=== PATIENT | female | born 1965 | race American Indian/Alaskan Native ===

== ENCOUNTER 2018-08-20 11:43 | Inpatient (IN) | payer MEDICARE ==
--- NOTE | 2018-08-20 12:29 | Cat Scan Report ---
CT HEAD WITHOUT CONTRAST: HISTORY: Stroke symptoms. TECHNIQUE: Sequential CT images without contrast. FINDINGS: No comparison at this facility. There are numerous metallic clips in the middle cranial fossa suggesting multiple previous aneurysm repairs. Please correlate with history. These clips generate significant artifact. Having said that, the brain parenchyma attenuation appears within normal limits. No evidence for large area of ischemia, hemorrhage or mass. No large chronic infarct. Ventricular size is within normal limits. The sinuses and mastoid air cells are well-aerated. Previous bilateral craniotomy changes are noted. IMPRESSION: Limited examination secondary to numerous surgical clips in the middle cranial fossa. No acute intracranial process is appreciated. These findings were discussed with Dr. Hairston in the emergency department at 1225 hrs.
[2018-08-20 12:48] LABS: Eosinophils # (Auto) 0.1 K/mm3 (0.0-0.4); Eosinophils % (Auto) 2.8 % (0.0-4.3); Hematocrit 38.4 % (30.3-42.9); Hemoglobin 12.8 gm/dl (10.1-14.3); Lymphocytes # (Auto) 1.8 K/mm3 (1.2-5.4); Lymphocytes % (Auto) 36.4 % (13.4-35.0); Mean Corpuscular HGB Conc 33 % (30-34); Mean Corpuscular Volume 90 fl (79-97); Monocytes # (Auto) 0.3 K/mm3 (0.0-0.8); Monocytes % (Auto) 6.6 % (0.0-7.3); Platelet Count 227 K/mm3 (140-440); Red Blood Count 4.25 M/mm3 (3.65-5.03)
[2018-08-20 13:01] LABS: INR 0.95 (0.87-1.13); Partial Thromboplastin Time 20.2 Sec. (24.2-36.6)
[2018-08-20 13:02] LABS: Thrombin Time 14.7 Sec. (15.1-19.6)
[2018-08-20 13:05] LABS: Creatine Kinase MB 1.7 ng/mL (0.0-4.0)
[2018-08-20 13:07] LABS: Alanine Aminotransferase 14 units/L (7-56); Albumin 3.7 g/dL (3.9-5); BUN/Creatinine Ratio 13; Blood Urea Nitrogen 9 mg/dL (7-17); Calcium 8.4 mg/dL (8.4-10.2); Hemolysis Index 10
[2018-08-20] MEDS ORDERED: BABY ASPIRIN PO ONE (13:10)
--- NOTE | 2018-08-20 13:13 | Emergency Department Report ---
ED Neuro Deficit HPI - General Chief Complaint: Neuro Symptoms/Deficit Stated Complaint: STROKE Time Seen by Provider: 08/20/18 11:49 Source: patient, family Mode of arrival: Wheelchair Limitations: No Limitations - History of Present Illness Initial Comments: Numbness in lips region- points to top lip right and left- that was noted upon awakening but then has gotten worse/more pronounced throughout the morning; she did take some cold medicine for HBP patients -: Gradual, During the night, This morning Time: 11:54 Last Observed Normal: 22:30 Location: left face, dysarthria, left arm Presenting Symptoms: Present: Facial Droop/Numbness, Unable to Speak Clearly History of same: No (unknown per patient if this is what she had with her aneurysms back in 2007) Place: home Severity: mild Quality: numb, tingling Improves With: none Worsens With: none On Anticoagulants: No Treatments Prior to Arrival: none - Related Data Home Medications: Home Medications Medication Instructions Recorded Confirmed Last Taken Aspirin [Adult Low Dose Aspirin EC] 81 mg PO DAILY 11/14/17 08/20/18 11/14/17 Butalb/Acetaminophen/Caffeine 1 - 2 each PO Q4H PRN MDD 6 11/14/17 08/20/18 Unknown [Fioricet 50-300-40 mg CAP] capsules Ibuprofen [Motrin 800 MG tab] 800 mg PO TIDWM 11/14/17 08/20/18 11/14/17 Pravastatin [Pravachol] 80 mg PO DAILY 08/20/18 08/20/18 Unknown Telmisartan/Hydrochlorothiazid 1 each PO QDAY 08/20/18 08/20/18 08/17/18 [Telmisartan-Hctz 80-25 mg Tab] Previous Rx's Medication Instructions Recorded Last Taken Type Famotidine [Pepcid] 10 mg PO BID #30 tablet 11/16/17 Unknown Rx Allergies/Adverse Reactions: Allergies Allergy/AdvReac Type Severity Reaction Status Date / Time Penicillins Allergy Hives Verified 11/14/17 13:13 contrast dye Allergy Hives Uncoded 11/14/17 13:13 ED Review of Systems ROS: Stated complaint: STROKE Other details as noted in HPI ED Past Medical Hx - Past Medical History Previous Medical History?: Yes Hx Hypertension: Yes Hx CVA: Yes (RIGHT SIDE WEAKNESS) Additional medical history: BRAIN ANEURYSM X3, - Surgical History Additional Surgical History: X3, ANEURYSM CLIP X3 - Social History Smoking Status: Current Every Day Smoker Substance Use Type: None - Medications Home Medications: Home Medications Medication Instructions Recorded Confirmed Last Taken Type Aspirin [Adult Low Dose Aspirin EC] 81 mg PO DAILY 11/14/17 08/20/18 11/14/17 History Butalb/Acetaminophen/Caffeine 1 - 2 each PO Q4H PRN MDD 6 11/14/17 08/20/18 Unknown History [Fioricet 50-300-40 mg CAP] capsules Ibuprofen [Motrin 800 MG tab] 800 mg PO TIDWM 11/14/17 08/20/18 11/14/17 History Famotidine [Pepcid] 10 mg PO BID #30 tablet 11/16/17 08/20/18 Unknown Rx Pravastatin [Pravachol] 80 mg PO DAILY 08/20/18 08/20/18 Unknown History Telmisartan/Hydrochlorothiazid 1 each PO QDAY 08/20/18 08/20/18 08/17/18 History [Telmisartan-Hctz 80-25 mg Tab] ED Neuro Physical Exam - General Limitations: No Limitations Suspected Stroke: Yes (not a candidate for tPA due to PMH, LKN) - NIHSS Assessment Interval: Baseline 1a. Level of Consciousness: alert/keenly responsive 1b. LOC Questions: answers both correctly 1c. LOC Commands: performs tasks correctly 2. Best Gaze: normal 3. Visual: no visual loss 4. Facial Palsy: normal symmetrical movement 5b. Motor Arm Right: no drift 5a. Motor Arm Left: drift 6a. Motor Leg Left: drift 6b. Motor Leg Right: no drift 7. Limb Ataxia: absent 8. Sensory: mild/moderate sensory loss 9. Best Language: no aphasia 10. Dysarthria: mild/moderate dysarthria 11. Extinction/Inattention: no abnormality Total Score: 4 Stroke Severity: Minor Stroke ED Course Vital Signs 08/20/18 08/20/18 08/20/18 11:50 11:52 12:01 Temperature 97.5 F L Pulse Rate 76 79 79 Respiratory 16 15 16 Rate Blood Pressure 148/77 148/77 O2 Sat by Pulse Oximetry 08/20/18 08/20/18 12:22 12:31 Temperature Pulse Rate 78 77 Respiratory 17 13 Rate Blood Pressure 148/77 121/68 O2 Sat by Pulse 100 Oximetry - Lab Data Result diagrams: 08/20/18 12:42 Lab Results 08/20/18 08/20/18 08/20/18 Range/Units 11:56 12:42 12:42 WBC 4.9 (4.5-11.0) K/mm3 RBC 4.25 (3.65-5.03) M/mm3 Hgb 12.8 (10.1-14.3) gm/dl Hct 38.4 (30.3-42.9) % MCV 90 (79-97) fl MCH 30 (28-32) pg MCHC 33 (30-34) % RDW 16.0 H (13.2-15.2) % Plt Count 227 (140-440) K/mm3 Lymph % (Auto) 36.4 H (13.4-35.0) % [place] % (Auto) 6.6 (0.0-7.3) % Eos % (Auto) 2.8 (0.0-4.3) % Baso % (Auto) 1.0 (0.0-1.8) % Lymph # 1.8 (1.2-5.4) K/mm3 [place] # 0.3 (0.0-0.8) K/mm3 Eos # 0.1 (0.0-0.4) K/mm3 Baso # 0.0 (0.0-0.1) K/mm3 Seg Neutrophils % 53.2 (40.0-70.0) % Seg Neutrophils # 2.6 (1.8-7.7) K/mm3 PT 13.3 (12.2-14.9) Sec. INR 0.95 (0.87-1.13) APTT 20.2 L (24.2-36.6) Sec. Thrombin Time 14.7 L (15.1-19.6) Sec. POC Glucose 102 (70-105) - Medical Decision Making [facility] Impression: r/o stroke vs recrudescence of old stroke sx h/o at least 3 intracranial aneurysms s/p coiling and clipping, per patient may have more, has been 2+ years from follow up headache recent viral/sinus infection contrast allergy- has done okay with benadryl in past Recommendations: d/w ED doc would recommend MRI brain and MRA without contrast H/N to get an idea of aneurysm stability and +/- stroke; if negative for stroke would pursue toxic/metabolic/infectious w/u for recrudescence of old stroke symptoms, seizure also to be considered but no LOC; if positive, then needs further w/u on inpatient side Not a tpa candidate given LKN time as well as h/o intracranial aneurysms and potentially more that are not stabilized Does not appear to be an LVO will f/u on above Effie Olvera MD CC: stroke alert History of Present Illness: 53 yo female here with significant other - went to bed normal 2230 hrs - woke at 600 and had numbness above lip - went shopping, got cold medicine, took some, ate lunch, c/o worsening tingling over top lip and now into arm- reported to signif other that "this happens from time to time when aneurysms mess up"; but informed team at bedside that she is not sure, can't remember what symptoms she had with aneurysms Diagnostic Testing: CT head pending Vital Signs: 148 systolic BG pending Exam: NIHSS = 4 as noted below Mental Status: Awake, alert, oriented Naming: Intact Repetition: Intact Speech: fluent, + 1 slurred Cranial Nerves: Pupils: Equal round and reactive to light Extraocular movements: Intact in all cardinal gaze Ptosis: Absent Visual parker: Intact to finger counting Facial sensation: Intact to pin and light touch Facial movements:intact Motor Exam: left arm drift +1 Left leg drift + 1 Tremor/Abnormal Movements: Resting tremor: Absent Intention tremor: Absent Postural tremor: Absent Sensory Exam: reduced on left +1 Coordination: Finger to nose: Intact Heel to carrasco: Intact Medical Decision Making: - Extensive number of diagnosis or management options are considered above. - Extensive amount of complex data reviewed. - High risk of complication and/or morbidity or mortality are associated with differential diagnostic considerations above. - There may be uncertain outcome and increased probability of prolonged functional impairment or high probability of severe prolonged functional impairment associated with some of these differential diagnosis. Medical Data Reviewed: 1.Data reviewed include clinical labs, radiology, Medical Tests; 2.Tests results discussed w/performing or interpreting physician; 3.Obtaining/reviewing old medical records; 4.Obtaining case history from another source; 5.Independent review of image, tracing or specimen. Patient was informed the Neurology Consult would happen via telehealth (remote video) and consented to receiving care in this manner. Critical care attestation.: If time is entered above; I have spent that time in minutes in the direct care of this critically ill patient, excluding procedure time. ED Disposition Clinical Impression: Stroke (cerebrum) Disposition: DC-09 OP ADMIT IP TO THIS HOSP Is pt being admited?: Yes Condition: Stable Referrals: JAMIE DICKINSON MD [Primary Care Provider] - 3-5 Days
--- NOTE | 2018-08-20 13:23 | Emergency Department Report ---
ED General Adult HPI - General Chief complaint: Neuro Symptoms/Deficit Stated complaint: STROKE Time Seen by Provider: 08/20/18 11:49 Source: patient, family Mode of arrival: Wheelchair Limitations: No Limitations - History of Present Illness Initial comments: Patient presents to the most part with chief complaint of facial numbness and left-sided facial droop. The patient states she woke up this morning at approximately 6:30 AM with numbness on the left side of her mouth. The symptoms became progressively worse throughout the day. Patient denies chest pain, shows above, or headache. Patient does have a history of multiple aneurysms -: Sudden Severity scale (0 -10): 0 Consistency: constant Improves with: none Worsens with: none Associated Symptoms: denies other symptoms Treatments Prior to Arrival: none - Related Data Home Medications Medication Instructions Recorded Confirmed Last Taken Aspirin [Adult Low Dose Aspirin EC] 81 mg PO DAILY 11/14/17 08/20/18 11/14/17 Butalb/Acetaminophen/Caffeine 1 - 2 each PO Q4H PRN MDD 6 11/14/17 08/20/18 Unknown [Fioricet 50-300-40 mg CAP] capsules Ibuprofen [Motrin 800 MG tab] 800 mg PO TIDWM 11/14/17 08/20/18 11/14/17 Pravastatin [Pravachol] 80 mg PO DAILY 08/20/18 08/20/18 Unknown Telmisartan/Hydrochlorothiazid 1 each PO QDAY 08/20/18 08/20/18 08/17/18 [Telmisartan-Hctz 80-25 mg Tab] Albuterol Sulfate [Proair 90 mcg IH Q6HR PRN 08/21/18 08/21/18 08/20/18 Respiclick] Previous Rx's Medication Instructions Recorded Last Taken Type Famotidine [Pepcid] 10 mg PO BID #30 tablet 11/16/17 Unknown Rx Allergies Allergy/AdvReac Type Severity Reaction Status Date / Time Penicillins Allergy Hives Verified 11/14/17 13:13 contrast dye Allergy Hives Uncoded 11/14/17 13:13 corn AdvReac Headache Uncoded 08/21/18 15:46 Oats AdvReac Headache Uncoded 08/21/18 15:47 potato AdvReac Headache Uncoded 08/21/18 15:46 ED Review of Systems ROS: Stated complaint: STROKE Other details as noted in HPI Comment: All other systems reviewed and negative Constitutional: denies: chills, fever Eyes: denies: eye pain, eye discharge, vision change ENT: denies: ear pain, throat pain Respiratory: denies: cough, shortness of breath, wheezing Cardiovascular: denies: chest pain, palpitations Endocrine: no symptoms reported Gastrointestinal: denies: abdominal pain, nausea, diarrhea Genitourinary: denies: urgency, dysuria, discharge Musculoskeletal: denies: back pain, joint swelling, arthralgia Skin: denies: rash, lesions Neurological: weakness, numbness. denies: headache, paresthesias Psychiatric: denies: anxiety, depression Hematological/Lymphatic: denies: easy bleeding, easy bruising ED Past Medical Hx - Past Medical History Previous Medical History?: Yes Hx Hypertension: Yes Hx CVA: Yes (RIGHT SIDE WEAKNESS) Additional medical history: BRAIN ANEURYSM X3, - Surgical History Additional Surgical History: X3, ANEURYSM CLIP X3 - Social History Smoking Status: Current Every Day Smoker Substance Use Type: None - Medications Home Medications: Home Medications Medication Instructions Recorded Confirmed Last Taken Type Aspirin [Adult Low Dose Aspirin EC] 81 mg PO DAILY 11/14/17 08/20/18 11/14/17 History Butalb/Acetaminophen/Caffeine 1 - 2 each PO Q4H PRN MDD 6 11/14/17 08/20/18 Unknown History [Fioricet 50-300-40 mg CAP] capsules Ibuprofen [Motrin 800 MG tab] 800 mg PO TIDWM 11/14/17 08/20/18 11/14/17 History Famotidine [Pepcid] 10 mg PO BID #30 tablet 11/16/17 08/20/18 Unknown Rx Pravastatin [Pravachol] 80 mg PO DAILY 08/20/18 08/20/18 Unknown History Telmisartan/Hydrochlorothiazid 1 each PO QDAY 08/20/18 08/20/18 08/17/18 History [Telmisartan-Hctz 80-25 mg Tab] Albuterol Sulfate [Proair 90 mcg IH Q6HR PRN 08/21/18 08/21/18 08/20/18 History Respiclick] ED Physical Exam - General Limitations: No Limitations General appearance: alert - Head Head exam: Present: atraumatic, normocephalic - Eye Eye exam: Present: normal appearance, PERRL, EOMI - ENT ENT exam: Present: mucous membranes moist - Neck Neck exam: Present: normal inspection - Respiratory Respiratory exam: Present: normal lung sounds bilaterally. Absent: respiratory distress, wheezes, rales, rhonchi - Cardiovascular Cardiovascular Exam: Present: regular rate, normal rhythm. Absent: systolic murmur, diastolic murmur, rubs, gallop - GI/Abdominal GI/Abdominal exam: Present: soft, normal bowel sounds. Absent: distended, tenderness - Extremities Exam Extremities exam: Present: normal inspection - Back Exam Back exam: Present: normal inspection - Neurological Exam Neurological exam: Present: alert, oriented X3, CN II-XII intact, normal gait, other (patient has left-sided facial droop with 3/5 strength of the left upper extremity) - Psychiatric Psychiatric exam: Present: normal affect, normal mood - Skin Skin exam: Present: warm, dry, intact, normal color. Absent: rash ED Course Vital Signs 08/20/18 08/20/18 08/20/18 11:50 11:52 12:01 Temperature 97.5 F L Pulse Rate 76 79 79 Respiratory 16 15 16 Rate Blood Pressure 148/77 148/77 Blood Pressure [Right] O2 Sat by Pulse Oximetry 08/20/18 08/20/18 08/20/18 12:22 12:31 12:45 Temperature Pulse Rate 78 77 76 Respiratory 17 13 14 Rate Blood Pressure 148/77 121/68 121/68 Blood Pressure [Right] O2 Sat by Pulse 100 100 Oximetry 08/20/18 08/20/18 08/20/18 13:01 13:15 13:30 Temperature Pulse Rate 80 74 77 Respiratory 24 15 23 Rate Blood Pressure 148/77 148/77 148/77 Blood Pressure [Right] O2 Sat by Pulse 97 100 99 Oximetry 08/20/18 08/20/18 08/20/18 13:45 14:01 14:15 Temperature Pulse Rate 77 77 77 Respiratory 21 17 25 H Rate Blood Pressure 132/58 132/58 132/58 Blood Pressure [Right] O2 Sat by Pulse 99 100 100 Oximetry 08/20/18 08/20/18 08/20/18 14:31 14:45 15:00 Temperature Pulse Rate 78 79 80 Respiratory 19 17 15 Rate Blood Pressure 124/43 124/43 120/63 Blood Pressure [Right] O2 Sat by Pulse 100 100 100 Oximetry 08/20/18 08/20/18 08/20/18 15:15 15:31 15:45 Temperature Pulse Rate 79 77 79 Respiratory 16 23 27 H Rate Blood Pressure 120/63 123/77 123/77 Blood Pressure [Right] O2 Sat by Pulse 100 99 100 Oximetry 08/20/18 08/20/18 08/20/18 16:01 16:15 16:31 Temperature Pulse Rate 69 76 81 Respiratory 16 20 22 Rate Blood Pressure 123/77 123/77 145/62 Blood Pressure [Right] O2 Sat by Pulse 100 100 100 Oximetry 08/20/18 08/20/18 08/20/18 16:45 17:01 17:15 Temperature Pulse Rate 79 75 78 Respiratory 14 21 23 Rate Blood Pressure 145/62 122/57 122/57 Blood Pressure [Right] O2 Sat by Pulse 100 100 Oximetry 08/20/18 08/20/18 08/20/18 17:31 17:45 18:01 Temperature Pulse Rate 73 76 72 Respiratory 23 29 H 15 Rate Blood Pressure 122/57 122/57 123/61 Blood Pressure [Right] O2 Sat by Pulse 100 100 100 Oximetry 08/20/18 08/20/18 08/20/18 18:15 18:31 19:01 Temperature Pulse Rate 71 73 74 Respiratory 26 H 16 28 H Rate Blood Pressure 123/61 133/65 118/85 Blood Pressure [Right] O2 Sat by Pulse 100 100 99 Oximetry 08/20/18 08/20/18 08/20/18 19:31 20:01 20:31 Temperature Pulse Rate 72 71 74 Respiratory 29 H 26 H 23 Rate Blood Pressure 140/86 137/77 146/71 Blood Pressure [Right] O2 Sat by Pulse 99 100 100 Oximetry 08/20/18 08/20/18 08/20/18 20:51 21:00 21:31 Temperature 98.4 F Pulse Rate 71 75 77 Respiratory 17 25 H 22 Rate Blood Pressure 118/70 121/79 Blood Pressure 123/65 [Right] O2 Sat by Pulse 100 100 99 Oximetry 08/20/18 08/20/18 22:01 22:31 Temperature Pulse Rate 67 67 Respiratory 12 18 Rate Blood Pressure 142/79 117/38 Blood Pressure [Right] O2 Sat by Pulse 100 100 Oximetry ED Medical Decision Making - Lab Data Result diagrams: 08/21/18 05:07 08/21/18 05:07 Lab Results 08/20/18 08/20/18 08/20/18 Range/Units 11:56 12:35 12:42 WBC 4.9 (4.5-11.0) K/mm3 RBC 4.25 (3.65-5.03) M/mm3 Hgb 12.8 (10.1-14.3) gm/dl Hct 38.4 (30.3-42.9) % MCV 90 (79-97) fl MCH 30 (28-32) pg MCHC 33 (30-34) % RDW 16.0 H (13.2-15.2) % Plt Count 227 (140-440) K/mm3 Lymph % (Auto) 36.4 H (13.4-35.0) % [place] % (Auto) 6.6 (0.0-7.3) % Eos % (Auto) 2.8 (0.0-4.3) % Baso % (Auto) 1.0 (0.0-1.8) % Lymph # 1.8 (1.2-5.4) K/mm3 [place] # 0.3 (0.0-0.8) K/mm3 Eos # 0.1 (0.0-0.4) K/mm3 Baso # 0.0 (0.0-0.1) K/mm3 Seg Neutrophils % 53.2 (40.0-70.0) % Seg Neutrophils # 2.6 (1.8-7.7) K/mm3 PT (12.2-14.9) Sec. INR (0.87-1.13) APTT (24.2-36.6) Sec. Thrombin Time (15.1-19.6) Sec. Sodium 140 (137-145) mmol/L Potassium 4.4 (3.6-5.0) mmol/L Chloride 105.6 (98-107) mmol/L Carbon Dioxide 24 (22-30) mmol/L Anion Gap 15 mmol/L BUN 9 (7-17) mg/dL Creatinine 0.7 (0.7-1.2) mg/dL Estimated GFR > 60 ml/min BUN/Creatinine Ratio 13 % Glucose 101 H (65-100) mg/dL POC Glucose 102 (70-105) Calcium 8.4 (8.4-10.2) mg/dL Total Bilirubin 0.20 (0.1-1.2) mg/dL AST 15 (5-40) units/L ALT 14 (7-56) units/L Alkaline Phosphatase 60 (35-129) units/L Total Creatine Kinase (30-135) units/L CK-MB (CK-2) (0.0-4.0) ng/mL CK-MB (CK-2) Rel Index (0-4) Troponin T (0.00-0.029) ng/mL Total Protein 6.2 L (6.3-8.2) g/dL Albumin 3.7 L (3.9-5) g/dL Albumin/Globulin Ratio 1.5 % 08/20/18 08/20/18 Range/Units 12:42 12:42 WBC (4.5-11.0) K/mm3 RBC (3.65-5.03) M/mm3 Hgb (10.1-14.3) gm/dl Hct (30.3-42.9) % MCV (79-97) fl MCH (28-32) pg MCHC (30-34) % RDW (13.2-15.2) % Plt Count (140-440) K/mm3 Lymph % (Auto) (13.4-35.0) % [place] % (Auto) (0.0-7.3) % Eos % (Auto) (0.0-4.3) % Baso % (Auto) (0.0-1.8) % Lymph # (1.2-5.4) K/mm3 [place] # (0.0-0.8) K/mm3 Eos # (0.0-0.4) K/mm3 Baso # (0.0-0.1) K/mm3 Seg Neutrophils % (40.0-70.0) % Seg Neutrophils # (1.8-7.7) K/mm3 PT 13.3 (12.2-14.9) Sec. INR 0.95 (0.87-1.13) APTT 20.2 L (24.2-36.6) Sec. Thrombin Time 14.7 L (15.1-19.6) Sec. Sodium (137-145) mmol/L Potassium (3.6-5.0) mmol/L Chloride (98-107) mmol/L Carbon Dioxide (22-30) mmol/L Anion Gap mmol/L BUN (7-17) mg/dL Creatinine (0.7-1.2) mg/dL Estimated GFR ml/min BUN/Creatinine Ratio % Glucose (65-100) mg/dL POC Glucose (70-105) Calcium (8.4-10.2) mg/dL Total Bilirubin (0.1-1.2) mg/dL AST (5-40) units/L ALT (7-56) units/L Alkaline Phosphatase (35-129) units/L Total Creatine Kinase 189 H (30-135) units/L CK-MB (CK-2) 1.7 (0.0-4.0) ng/mL CK-MB (CK-2) Rel Index 0.8 (0-4) Troponin T < 0.010 (0.00-0.029) ng/mL Total Protein (6.3-8.2) g/dL Albumin (3.9-5) g/dL Albumin/Globulin Ratio % - Radiology Data Radiology results: report reviewed - Medical Decision Making CT of the head obtained Spoke with total neurology and with the patient's history of aneurysms was suggested that we do a CTA of the head and neck The patient is allergic to IV contrast thus MRA of the head and neck was suggest ed Because of the patient's history of aneurysms with clips MRA cannot be done Discussed pretreatment of allergies with the radiologist but due to the multiple amount of clips a CTA was felt not to be the optimal test to get On reexamination of the patient at 1245 and all over has facial droop and is able to move her left forearm without difficulty Discussed with patient and need for admission Critical care attestation.: If time is entered above; I have spent that time in minutes in the direct care of this critically ill patient, excluding procedure time. ED Disposition Clinical Impression: Stroke (cerebrum) Disposition: DC-09 OP ADMIT IP TO THIS HOSP Is pt being admited?: Yes Does the pt Need Aspirin: No Condition: Fair - Assessment Assessment Interval: Baseline - Level of Consciousness 1a. Level of Consciousness: alert/keenly responsive - LOC Questions 1b. LOC Questions: answers both correctly - LOC Command 1c. LOC Commands: performs tasks correctly - Best Gaze 2. Best Gaze: normal - Visual 3. Visual: no visual loss - Facial Palsy 4. Facial Palsy: partial paralysis - Motor Arm 5a. Motor Arm Left: drift 5b. Motor Arm Right: no drift - Motor Leg 6a. Motor Leg Left: no drift 6b. Motor Leg Right: no drift - Limb Ataxia 7. Limb Ataxia: absent - Sensory 8. Sensory: normal - Best Language 9. Best Language: no aphasia - Dysarthria 10. Dysarthria: normal - Extinction and Inattention 11. Extinction/Inattention: no abnormality - Scoring Total Score: 3 Stroke Severity: Minor Stroke
[2018-08-20 16:52] LABS: Bacteria,Urine 1+ /HPF (Negative); Bilirubin,Urine NEG (Negative); Blood,Urine NEG (Negative); Color,Urine Yellow (Yellow); Mucus,Urine FEW /HPF
[2018-08-20 17:04] LABS: Amphetamine Screen,Urine PRESUMPTIVE NEGATIVE; Benzodiazepines Screen,Urine PRESUMPTIVE NEGATIVE; Cannabinoid Screen,Urine PRESUMPTIVE NEGATIVE; Cocaine Screen,Urine PRESUMPTIVE NEGATIVE; Methadone Screen,Urine PRESUMPTIVE NEGATIVE; Opiate Screen,Urine PRESUMPTIVE NEGATIVE
--- NOTE | 2018-08-20 20:49 | Event Note ---
Date: 08/20/18 See dictated H/p in Reports TIA
[2018-08-20] MEDS ORDERED: AMBIEN PO PRN (20:52)
[2018-08-20] MEDS ORDERED: PERCOCET 5/325 PO PRN (20:52)
[2018-08-20] MEDS ORDERED: DILAUDID IV PRN (20:52)
[2018-08-20] MEDS ORDERED: TYLENOL PO PRN (20:52)
[2018-08-20] MEDS ORDERED: SODIUM CHLORIDE FLUSH SYRINGE 10 ML IV PRN (20:52)
[2018-08-20] MEDS ORDERED: ZOFRAN IV PRN (20:52)
[2018-08-20] MEDS ORDERED: SODIUM CHLORIDE FLUSH SYRINGE 10 ML INJ PRN (20:55)
[2018-08-20] MEDS ORDERED: ACETAMINOPHEN PO PRN (20:57)
[2018-08-20] MEDS ORDERED: CAFFEINE PO PRN (20:57)
[2018-08-20] MEDS ORDERED: BUTALB PO PRN (20:57)
[2018-08-20] MEDS ORDERED: HYDROCHLOROTHIAZID PO SCH (21:00)
[2018-08-20] MEDS ORDERED: NACL 0.9% 1000 ML 1,000 ML IV SCH (21:00)
[2018-08-20] MEDS ORDERED: FIORICET PO PRN (21:00)
[2018-08-20] MEDS ORDERED: PRAVACHOL PO SCH (21:00)
[2018-08-20] MEDS ORDERED: TELMISARTAN PO SCH (21:00)
[2018-08-20] MEDS ORDERED: PEPCID ONE (22:15)
[2018-08-20] MEDS: SODIUM CHLORIDE FLUSH SYRINGE 10 ML IV SCH (22:17)
[2018-08-20] MEDS: PEPCID PO SCH (22:17)
[2018-08-21 06:41] LABS: Eosinophils # (Auto) 0.2 K/mm3 (0.0-0.4); Eosinophils % (Auto) 3.6 % (0.0-4.3); Hematocrit 35.2 % (30.3-42.9); Hemoglobin 11.9 gm/dl (10.1-14.3); Lymphocytes % (Auto) 43.6 % (13.4-35.0); Mean Corpuscular HGB Conc 34 % (30-34); Mean Corpuscular Volume 89 fl (79-97); Monocytes # (Auto) 0.4 K/mm3 (0.0-0.8); Monocytes % (Auto) 9.3 % (0.0-7.3); Platelet Count 225 K/mm3 (140-440); Red Blood Count 3.98 M/mm3 (3.65-5.03); Red Cell Distribution Width 15.7 % (13.2-15.2)
[2018-08-21 07:16] LABS: Alanine Aminotransferase 12 units/L (7-56); Albumin 3.5 g/dL (3.9-5); BUN/Creatinine Ratio 14; Blood Urea Nitrogen 10 mg/dL (7-17); Calcium 8.2 mg/dL (8.4-10.2); Chol/HDL Ratio 3.78 %; HDL Cholesterol 41 mg/dL (40-59); Hemolysis Index 2; LDL Cholesterol,Direct 104 mg/dL (50-130)
--- NOTE | 2018-08-21 08:32 | History and Physical Report ---
CHIEF COMPLAINT: Left-sided facial numbness and left upper and lower extremity numbness in the morning around 6:30 a.m., which lasted for around 1 hour. HISTORY OF PRESENT ILLNESS: The patient presents with left facial numbness and left facial droop and left-sided numbness. It lasted for 1 hour. During my examination today, the patient was asymptomatic. No chest pain. No headache. No shortness of breath. No fever or chills. PAST MEDICAL HISTORY: Significant for: 1. Hypertension. 2. Hyperlipidemia. 3. Recurrent headaches. PAST SURGICAL HISTORY: Cerebrovascular accident with right-sided weakness apparently. Also brain aneurysms x 3. PAST SURGICAL HISTORY: x 3, aneurysm clip x 3. SOCIAL HISTORY: Smokes over a pack a day. FAMILY HISTORY: Hypertension. REVIEW OF SYSTEMS: Significant for left-sided facial numbness and left upper and lower extremity numbness, which has resolved. PHYSICAL EXAMINATION: VITAL SIGNS: Blood pressure is 142/79, temperature is 98.1, pulse is 67, respirations are 12. HEENT: Unremarkable. Pupils equal and reactive. NECK: Supple, no lymphadenopathy, no thyromegaly. LUNGS: Clear to auscultation and percussion. Good air entry. CARDIOVASCULAR: S1, S2 heard. No gallop, no murmur, no rub. Apical impulse in left fifth intercostal space and midclavicular line. ABDOMEN: Soft and benign. No hepatosplenomegaly. No guarding, no rigidity. Hernial orifices are normal. EXTREMITIES: Good pedal pulses. No pedal edema. CENTRAL NERVOUS SYSTEM: Alert and oriented x 4, nonfocal exam. SKIN: Normal. LABORATORY DATA: White count is 4900, H and H is 12.8 and 38.4, platelet count is 227,000. Electrolytes are normal. Glucose is 101. Total CK is 189. Total protein is 6.2, albumin is 3.7. Urine specific gravity is 1.032. Drug screen is positive for barbiturates. Head CT was normal except for numerous amounts of surgical clips. ASSESSMENT AND PLAN: 1. Transient ischemic attack. The patient initiated on MRI/MRA protocol and carotid duplex scan. Echocardiogram not needed at this point. If MRI/MRA is negative, we will discharge the patient in 24 hours. 2. Hypertension. Continue telmisartan and hydrochlorothiazide once a day. 3. Hyperlipidemia. Continue pravastatin. 4. Gastroesophageal reflux disease. Continue famotidine. 5. Headaches. Continue Fioricet on a p.r.n. basis. 6. Deep venous thrombosis prophylaxis. Lovenox 40 mg subcutaneously daily. JOB# [id number] VSM/NTS
[2018-08-21] MEDS: IBUPROFEN PO SCH ×2 (09:57→14:02)
[2018-08-21] MEDS: PEPCID PO SCH (09:57)
[2018-08-21] MEDS ORDERED: LOVENOX SUB-Q SCH (10:00)
[2018-08-21] MEDS ORDERED: COZAAR PO SCH (10:00)
[2018-08-21] MEDS ORDERED: ATIVAN IV NR (10:00)
[2018-08-21] MEDS ORDERED: HALFPRIN EC PO SCH (10:00)
[2018-08-21] MEDS ORDERED: HCTZ PO SCH (10:00)
[2018-08-21] MEDS: SODIUM CHLORIDE FLUSH SYRINGE 10 ML IV SCH (10:37)
--- NOTE | 2018-08-21 14:01 | Magnetic Resonance Report ---
MRI OF THE BRAIN WITHOUT CONTRAST: HISTORY: Stroke PROCEDURE: Multiplanar, multisequence MR imaging of the brain without IV contrast was performed. FINDINGS: Surgical clips in the medial cranial fossa and generate moderate artifacts. Correlate with surgical history. The brain parenchyma signal intensity and its slater white interface are within normal limits on all sequences. No evidence for acute ischemia, hemorrhage or mass. No chronic infarct or extra-axial fluid collection. The midline structures are central. The basal cisterns are patent. Normal ventricular size. The orbital cavities and sella turcica demonstrate no abnormality. The visualized paranasal sinuses and mastoid air cells are well aerated. IMPRESSION: Unremarkable non-enhanced MRI of the brain.
--- NOTE | 2018-08-21 14:11 | Magnetic Resonance Report ---
MRA HEAD WITHOUT CONTRAST HISTORY: Stroke. [id number] imaging with MIP reformations of the [place] of [place] is submitted. The images are severely limited secondary to susceptibility artifact from surgical clips in the middle cranial fossa. The distal ICAs and proximal MCAs are not clearly visualized due to artifact. Otherwise the cerebral vessels in the anterior and posterior circulations are patent and without abnormality. No large aneurysm. IMPRESSION: Limited exam secondary to artifact. No obvious abnormality.
--- NOTE | 2018-08-21 15:37 | Discharge Summary ---
Providers - Providers Date of Admission: 08/20/18 20:52 Date of discharge: 08/21/18 Attending physician: ZEKE GATICA 08/20/18 14:59 Speech Therapy Evaluation and Treat [CONS] Stat Reason For Exam: choaked while doing swallow screen 08/20/18 20:55 Physical Therapy Evaluation and Treat [CONS] Routine Comment: Reason For Exam: Neuro deficits Primary care physician: JAMIE DICKINSON MD Hospitalization Condition: Fair Pertinent studies: MRA IMPRESSION: Limited exam secondary to artifact. No obvious abnormality MRI Normal except for clips. Hospital course: Admitted for TIA---w/u negative . HTn cont antihypertensives HLD Cont statins Headache Symptomatic treatment Disposition: - TO HOME OR SELFCARE Core Measure Documentation - Palliative Care Palliative Care/ Comfort Measures: Not Applicable - Core Measures Any of the following diagnoses?: none Exam - Constitutional Vitals: Temp Pulse Resp BP Pulse Ox 97.7 F 84 18 146/76 100 08/21/18 05:40 08/21/18 09:56 08/21/18 05:40 08/21/18 09:56 08/21/18 15:20 General appearance: Present: no acute distress, well-nourished - EENT Eyes: Present: PERRL ENT: hearing intact, clear oral mucosa - Neck Neck: Present: supple, normal ROM - Respiratory Respiratory effort: normal Respiratory: bilateral: CTA - Cardiovascular Heart rate: 78 Rhythm: regular Heart Sounds: Present: S1 & S2. Absent: rub, click - Extremities Extremities: no ischemia, pulses intact, pulses symmetrical, No edema Peripheral Pulses: within normal limits - Abdominal General gastrointestinal: Present: soft, non-tender, non-distended, normal bowel sounds Female genitourinary: Present: normal - Rectal Rectal Exam: deferred - Integumentary Integumentary: Present: clear, warm, dry - Musculoskeletal Musculoskeletal: gait normal, strength equal bilaterally - Psychiatric Psychiatric: appropriate mood/affect, intact judgment & insight - Neurologic Neurologic: CNII-XII intact, moves all extremities - Allied Health Allied health notes reviewed: nursing, case management Plan Activity: no restrictions Diet: low fat, low cholesterol, low salt Follow up with: JAMIE DICKINSON MD [Primary Care Provider] - 3-5 Days
[2018-08-21 17:55] VITALS: BP 143/77
--- NOTE | 2018-08-21 18:53 | Vascular Lab Report ---
PROCEDURE: VL CAROTID DUPLEX BILAT TECHNIQUE: Duplex Doppler ultrasound of the common, internal and external carotid arteries and the v ertebral arteries was performed bilaterally. Sterling scale imaging, velocity spectral waveform analysis, and color flow Doppler were employed. HISTORY: stroke COMPARISONS: None . Note: Measurement of carotid stenosis is based on flow velocity values that correlate with the [place] Symptomatic Carotid Endarterectomy Trial (NASCET) based stenosis criteria using the internal carotid artery diameter as the denominator for stenosis calculation. FINDINGS: RIGHT carotid artery: Velocities: ICA PSV: 102 cm/sec ICA End diastolic: 48 cm/sec CCA PSV: 87 cm/sec IC/CC ratio: 1.1 7 Plaque/color flow: No significant plaque with no significant spectral broadening or abnormal color f low . RIGHT vertebral artery: Antegrade systolic and diastolic flow LEFT carotid artery: Velocities: ICA PSV: 102 cm/sec ICA End diastolic: 37 cm/sec CCA PSV: 93 cm/sec IC/CC ratio: 1. Plaque/color flow: No significant plaque with no significant spectral broadening or abnormal color f low . LEFT vertebral artery: Antegrade systolic and diastolic flow IMPRESSION: 1. RIGHT carotid: No hemodynamically significant (less than 50 percent) internal carotid artery dylan nosis. 2. LEFT carotid: No hemodynamically significant (less than 50 percent) internal carotid artery sten osis. 3. Vertebral arteries: Bilaterally antegrade. This document is electronically signed by Danish Arellano MD., August 21 2018 06:50:45 PM ET
== END 2018-08-21 17:00 | disposition home or self-care (01) | DRG 69 ==
LOC: ED 11:43 → 3A 20:52
PROVIDERS: ADMIT Internal Medicine; ATTEND Internal Medicine
DX: G45.9 Transient cerebral ischemic attack, unspecified (principal); I10 Essential (primary) hypertension; E78.5 Hyperlipidemia, unspecified; R51 Headache; K21.9 Gastro-esophageal reflux disease without esophagitis; F17.200 Nicotine dependence, unspecified, uncomplicated; Z79.82 Long term (current) use of aspirin; Z79.899 Other long term (current) drug therapy; Z88.0 Allergy status to penicillin; Z91.041 Radiographic dye allergy status; Z82.49 Family history of ischemic heart disease and other diseases of the circulatory system
CPT/HCPCS: 36415; 70450; 70544; 70551; 80053; 80061; 80307; 81001; 82550; 82553; 82962; 84484; 85025; 85610; 85670; 85730; 93005; 93010; 93880; G0378; A9270-GY; J1650; J2060; J7030